=== PATIENT | female | born 1935 | race Caucasian/White ===

== ENCOUNTER 2018-06-22 14:10 | Emergency (ER) | payer MEDICARE ==
[~2018-06-22] VITALS: Ht 165.1 cm; Wt 81.6 kg
[2018-06-22] MEDS ORDERED: TRAMADOL HCL 50 MG TAB PO ONE (17:00)
== END 2018-06-22 17:50 | disposition home or self-care (01) ==
LOC: EDBD 14:10 → ER 14:10
DX: M54.5 Low back pain (principal); G89.29 Other chronic pain; Z87.442 Personal history of urinary calculi
CPT/HCPCS: 99282

== ENCOUNTER → 2018-07-01 | Outpatient (CLI) | payer MEDICARE, OTHER | LOC: RAD 10:36 | PROVIDERS: ATTEND Family Medicine | DX: M54.12 Radiculopathy, cervical region (principal); R42 Dizziness and giddiness; R55 Syncope and collapse; I65.21 Occlusion and stenosis of right carotid artery | CPT/HCPCS: 93306; 93880 ==

== ENCOUNTER → 2018-07-05 | Outpatient (CLI) | payer MEDICARE, OTHER ==
--- NOTE | 2018-07-05 12:30 | Diagnostic Imaging Report ---
EXAMINATION: MRI of the brain without contrast. HISTORY: Dizziness for the last 2 months, headaches, hypertension, weakness and difficulty walking COMPARISON: None. TECHNIQUE: Sagittal T2; axial DWI, T2, FLAIR, T1-IR, T2 gradient echo; coronal FLAIR. IMAGE QUALITY: Adequate. FINDINGS: Parenchyma: 1. Scatter and mildly confluent supratentorial white matter T2 and FLAIR hyperintense foci, most likely age related nonspecific chronic microvascular changes. 2. Nonspecific low T1 and high T2 signal intensity within the globi pallidi, which may represent sequela from remote toxic exposure, metabolic disorder or ischemia among other causes. 3. No mass, hemorrhage, acute or chronic infarcts. Skull: Unremarkable. Vessels: Expected flow voids present in the major arteries and dural sinuses. Extra-axial spaces: No abnormal signal intensity or mass effect. Brain volume: Within normal limits for age. Ventricles: No hydrocephalus or displacement. Foramen magnum: Unremarkable. Sella: Unremarkable. Paranasal / mastoid sinuses: Opacification of the sphenoid sinuses mostly with T1 hyperintense signal material which may correspond to inspissated secretions, otherwise clear. Cervical spine: Partially visualized degenerative changes with moderate canal stenoses at C2-C3. IMPRESSION: 1. No acute intracranial abnormalities. 2. Mild nonspecific chronic microvascular ischemic changes. 3. Partially visualized degenerative changes of the cervical spine. Signed by: Dr. Qi Veliz M.D. on 07/05/2018 12:27 PM
== END ==
LOC: MRI 11:07
PROVIDERS: ATTEND Family Medicine
DX: M54.12 Radiculopathy, cervical region (principal); R42 Dizziness and giddiness; R55 Syncope and collapse
CPT/HCPCS: 70551